=== PATIENT | female | born 1960 | race Caucasian/White ===

== ENCOUNTER 2018-09-15 12:33 | Emergency (ER) | payer OTHER ==
[2018-09-15 12:46] VITALS: BP 117/80
[2018-09-15] MEDS ORDERED: IBUPROFEN PO ONE (13:25)
--- NOTE | 2018-09-15 13:34 | XRay Report ---
LEFT ANKLE RADIOGRAPHS INDICATION: Left ankle pain. COMPARISON: None similar. FINDINGS: AP, lateral and oblique left ankle radiographs demonstrate intact mortise, malleoli and talar dome contour. Slight soft tissue prominence/swelling questioned below the malleoli, medial more than lateral versus projectional or related to patient's body habitus. Small calcaneal spurs, plantar larger than dorsal. Dorsal midfoot spurring also noted. CONCLUSION: No acute left ankle bony abnormality, as described. Thank you for the opportunity to participate in this patient's care.
--- NOTE | 2018-09-15 13:55 | Emergency Department Report ---
ED Lower Extremity HPI - General Chief Complaint: Extremity Injury, Lower Stated Complaint: RT FOOT INJURY/PAIN Time Seen by Provider: 09/15/18 12:58 Source: patient, operations support representative Mode of arrival: Wheelchair Limitations: Language Barrier - History of Present Illness Initial Comments: This is a 58-year-old female nontoxic, well nourished in appearance, no acute signs of distress presents to the ED with c/o of left ankle pain 1 day. Patient stated that she fell and twisted her ankle. Patient denies any other trauma. Patient denies any numbness, tingling, fever, chills, nausea, vomiting, chest pain, shortness of breath, headache, stiff neck. Patient denies any joint swelling or joint redness. Patient denies decreased range of motion. Patient stated has decreased gait due to pain. Patient denies any allergies. MD Complaint: ankle injury -: days(s) (1) Injury: Ankle: Left Severity: mild Severity scale (0 -10): 8 Improves With: immobilization Worsens With: weight bearing, movement, palpation Associated Symptoms: swelling, able to partially bear weight, ambulatory. denies: snap/pop sensation, numbness, tingling, unable to bear weight - Related Data Previous Rx's Medication Instructions Recorded Last Taken Type Acetaminophen/Codeine 1 tab PO Q6H PRN #30 tab 05/28/14 Unknown Rx [Acetaminophen-Codeine #3 TAB] Ibuprofen [Motrin] 800 mg PO TID PRN #50 tablet 05/28/14 Unknown Rx Lisinopril [Zestril TAB] 20 mg PO QDAY #90 tablet 12/26/14 Unknown Rx Famotidine [Pepcid] 20 mg PO BID #20 tablet 02/13/16 Unknown Rx diphenhydrAMINE [Benadryl CAP] 25 mg PO Q6HR PRN #25 capsule 02/13/16 Unknown Rx methylPREDNISolone [Medrol] 4 mg PO DAILY #1 tab.ds.pk 02/13/16 Unknown Rx Ibuprofen [Motrin] 600 mg PO Q8H PRN #20 tablet 09/15/18 Unknown Rx Allergies Allergy/AdvReac Type Severity Reaction Status Date / Time No Known Allergies Allergy Unverified 05/28/14 10:58 ED Review of Systems ROS: Stated complaint: RT FOOT INJURY/PAIN Other details as noted in HPI Constitutional: denies: chills, fever Eyes: denies: eye pain, eye discharge, vision change ENT: denies: ear pain, throat pain Respiratory: denies: cough, shortness of breath, wheezing Cardiovascular: denies: chest pain, palpitations Endocrine: no symptoms reported Gastrointestinal: denies: abdominal pain, nausea, diarrhea Genitourinary: denies: urgency, dysuria, discharge Musculoskeletal: denies: back pain, joint swelling, arthralgia Skin: denies: rash, lesions Neurological: denies: headache, weakness, paresthesias Psychiatric: denies: anxiety, depression Hematological/Lymphatic: denies: easy bleeding, easy bruising ED Past Medical Hx - Past Medical History Previous Medical History?: Yes Hx Hypertension: Yes Hx Headaches / Migraines: Yes Additional medical history: high cholestrol - Surgical History Past Surgical History?: Yes Additional Surgical History: x 4. lumpectomy - Social History Smoking Status: Never Smoker Substance Use Type: None - Medications Home Medications: Home Medications Medication Instructions Recorded Confirmed Last Taken Type Acetaminophen/Codeine 1 tab PO Q6H PRN #30 tab 05/28/14 Unknown Rx [Acetaminophen-Codeine #3 TAB] Ibuprofen [Motrin] 800 mg PO TID PRN #50 tablet 05/28/14 Unknown Rx Lisinopril [Zestril TAB] 20 mg PO QDAY #90 tablet 12/26/14 Unknown Rx Famotidine [Pepcid] 20 mg PO BID #20 tablet 02/13/16 Unknown Rx diphenhydrAMINE [Benadryl CAP] 25 mg PO Q6HR PRN #25 capsule 02/13/16 Unknown Rx methylPREDNISolone [Medrol] 4 mg PO DAILY #1 tab.ds.pk 02/13/16 Unknown Rx Ibuprofen [Motrin] 600 mg PO Q8H PRN #20 tablet 09/15/18 Unknown Rx ED Physical Exam - General Limitations: Language Barrier General appearance: alert, in no apparent distress - Head Head exam: Present: atraumatic, normocephalic - Eye Eye exam: Present: normal appearance - Neck Neck exam: Present: normal inspection, full ROM - Extremities Exam Extremities exam: Present: normal inspection, full ROM, tenderness, normal capillary refill. Absent: joint swelling - Expanded Lower Extremity Exam Left Hip exam: Present: normal inspection, full ROM. Absent: tenderness Upper Leg exam: Present: normal inspection, full ROM. Absent: tenderness Knee exam: Present: normal inspection, full ROM. Absent: tenderness Lower Leg exam: Present: normal inspection, full ROM. Absent: tenderness Ankle exam: Present: normal inspection, full ROM, tenderness, swelling. Absent: abrasion, laceration, ecchymosis, deformity, crepidus, dislocation, erythema, anterior draw sign Foot/Toe exam: Present: normal inspection, full ROM. Absent: tenderness, swelling, abrasion, laceration, ecchymosis, deformity, crepidus, dislocation, erythema, amputation, puncture wound, foreign body, calcaneal tenderness, tenderness at base of 5th metatarsal, nail avulsion, subungual hematoma Neuro vascular tendon exam: Present: no vascular compromise Gait: Positive: observed and limited by pain 1 - pain here - Back Exam Back exam: Present: normal inspection, full ROM - Neurological Exam Neurological exam: Present: alert, oriented X3 - Psychiatric Psychiatric exam: Present: normal affect, normal mood - Skin Skin exam: Present: warm, dry, intact, normal color. Absent: rash ED Course Vital Signs 09/15/18 12:41 Temperature 97.9 F Pulse Rate 75 Respiratory 16 Rate Blood Pressure 117/80 O2 Sat by Pulse 97 Oximetry - Reevaluation(s) Reevaluation #1: 09/15/18 13:57 Patient is speaking in full sentences with no signs of distress noted. ED Lower Extremity MDM - Medical Decision Making This is a 58-year-old female that presents with left ankle sprain. Patient is stable and was examined by me. I referred patient to an orthopedic doctor for further evaluation for possible MRI. X-ray has been obtained and dictated by the radiologist. Patient is notified of the x-ray report with noted by the patient. Patient does have normal gait with no tenderness and no joint swelling. No ecchymosis. no joint redness or swelling. Not warm to touch. No signs of cellulites present. Patient received ankle stirrup and crutches and was educated by RN how to use crutches. Patient was instructed to RICE therapy. Patient received Motrin for pain. Patient is discharged with Motrin. At time of discharge, the patient does not seem toxic or ill in appearance. No acute signs of distress noted. Patient agrees to discharge treatment plan of care. No further questions noted by the patient. Critical care attestation.: If time is entered above; I have spent that time in minutes in the direct care of this critically ill patient, excluding procedure time. ED Disposition Clinical Impression: Left ankle sprain Qualifiers: Encounter type: initial encounter Involved ligament of ankle: unspecified ligament Qualified Code(s): S93.402A - Sprain of unspecified ligament of left ankle, initial encounter Disposition: TO HOME OR SELFCARE Is pt being admited?: No Does the pt Need Aspirin: No Condition: Stable Instructions: Ankle Stirrup Splint (ED), Ankle Sprain (ED), Crutch Instructions (ED) Additional Instructions: Follow-up with a orthopedic doctor in 3-5 days or if symptoms worsen and continue return to emergency room as soon as possible. Prescriptions: Ibuprofen [Motrin] 600 mg PO Q8H PRN #20 tablet PRN Reason: Pain Referrals: MORELIA ARGUELLES DO [Primary Care Provider] - 3-5 Days PRIMARY CARE, [Referring] - 3-5 Days DOC YEUNG MD [Staff Physician] - 3-5 Days [facility] [Outside] - 3-5 Days Forms: Work/School Release Form(ED)
== END 2018-09-15 14:26 | disposition home or self-care (01) ==
LOC: ED 12:33
DX: S93.402A Sprain of unspecified ligament of left ankle, initial encounter (principal); I10 Essential (primary) hypertension; G43.909 Migraine, unspecified, not intractable, without status migrainosus; E78.00 Pure hypercholesterolemia, unspecified; W10.9XXA Fall (on) (from) unspecified stairs and steps, initial encounter; Y93.89 Activity, other specified; Y92.89 Other specified places as the place of occurrence of the external cause; Y99.8 Other external cause status